=== PATIENT | male | born 1990 | race Caucasian/White ===

== ENCOUNTER 2022-09-06 14:35 | Emergency (ER) | payer MEDICAID, SELFPAY ==
[2022-09-06 14:37] VITALS: BP 131/81; PULSE 83; RESP 18; TEMP 35.9; O2SAT 99; BMI 30.5
--- NOTE | 2022-09-06 15:00 | EKG12_ITS ---
Test Reason : NEAR SYNCOPE Blood Pressure : / mmHG Vent. Rate : 074 BPM Atrial Rate : 074 BPM P-R Int : 142 ms QRS Dur : 094 ms QT Int : 372 ms P-R-T Axes : 044 040 011 degrees QTc Int : 412 ms Normal sinus rhythm with sinus arrhythmia Nonspecific ST and T wave abnormality Abnormal ECG Confirmed by KARLA GRADY, MARKEL ([id number]), editor newspaper MARILU CRISTINA ([id number]) on 09/08/2022 7:25:13 AM Referred By: SAM Confirmed By:MARKEL ACOSTA MD
--- NOTE | 2022-09-06 15:17 | EX.ED.DYSGE1 ---
HPI History of Present Illness Chief Complaint: Syncope Informant: patient Narrative Narrative: Patient is a 32-year-old male that denies any past medical history presenting after near syncopal episode and epistaxis. Patient slept from 6 AM to 12 PM and got up. He thought about going back to sleep. 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 He then was not feeling right and felt nauseous. He went to walk to the kitchen to get a cup of water when he started to feel lightheaded had chest discomfort and pain in his left arm. Patient states he had some ringing in his ears at this time. He knelt to the ground. He felt like he was going to pass out. When he went to stand up he stumbled and did hit his nose and developed nosebleed. He called a friend who then brought him to the emergency room for evaluation. Patient states he is never anything like this before and feels like something was wrong. He denies actually hitting his head or passing out. He currently has no symptoms. He notes has been having discomfort in his left arm just above his elbow for the past few days. He also reports that today is the anniversary of his mother's from lung cancer. Denies any history of blood clots. Denies any swelling of his legs. No other complaints at this time. [facility] Medical History (Updated 09/06/22 @ 17:[address] Maria Alejandra Torres DO) Syncope Home Medications NK 09/06/22 [History Last Taken Unknown] Allergy/AdvReac Type Severity Reaction Status Date / Time No Known Allergies Allergy Verified 09/06/22 14:36 Social History Smoking Status: Never smoker [facility] ED Constitutional Constitutional ED: Denies chills or fever(s) Eyes Eyes: Denies blurry vision or change in vision ENT ENT ED: Reports other Details: Nosebleed, ear ringing ; Denies ear pain or rhinorrhea Cardiovascular Cardiovascular: Reports chest pain; Denies palpitations Respiratory/Chest Respiratory/Chest: Denies cough, dyspnea or dyspnea on exertion Gastrointestinal Gastrointestinal: Reports nausea; Denies abdominal pain or vomiting Genitourinary Genitourinary ED: Denies dysuria Musculoskeletal Musculoskeletal: Reports other Details: Left arm pain ; Denies arthralgias or myalgias Integumentary Denies rash Neurologic Neurologic: Denies headache(s), paresthesias or weakness Psychiatric Psychiatric: Reports anxiety; Denies depression Hematologic/Lymphatic Hematologic/Lymphatic: Denies easy bleeding or easy bruising EXAM Physical Exam Const Vital Signs: 09/06/22 14:37 09/06/22 15:34 09/06/22 16:52 Temperature 96.6 F L Temperature Source Temporal Pulse Rate 83 Pulse Rate [Lying] 84 Pulse Rate [Sitting (for 1 minute prior to obtaining)] 79 Pulse Rate [Standing (for 1 minute prior to obtaining)] 83 Respiratory Rate 18 Respiratory Effort Normal Non-Labored Respiratory Pattern Normal Blood Pressure 131/81 H Blood Pressure [Lying] 103/92 H Blood Pressure [Sitting (for 1 minute prior to obtaining)] 131/80 H Blood Pressure [Standing (for 1 minute prior to obtaining)] 129/76 H Blood Pressure Mean 97 Blood Pressure Mean [Lying] 95 Blood Pressure Mean [Sitting (for 1 minute prior to obtaining)] 97 Blood Pressure Mean [Standing (for 1 minute prior to obtaining)] 93 Pulse Ox 99 Oxygen Delivery Method Room Air 09/06/22 17:01 09/06/22 18:19 Temperature Temperature Source Pulse Rate 79 Pulse Rate [Lying] Pulse Rate [Sitting (for 1 minute prior to obtaining)] Pulse Rate [Standing (for 1 minute prior to obtaining)] Respiratory Rate 23 H Respiratory Effort Respiratory Pattern Blood Pressure 128/75 H Blood Pressure [Lying] Blood Pressure [Sitting (for 1 minute prior to obtaining)] Blood Pressure [Standing (for 1 minute prior to obtaining)] Blood Pressure Mean Blood Pressure Mean [Lying] Blood Pressure Mean [Sitting (for 1 minute prior to obtaining)] Blood Pressure Mean [Standing (for 1 minute prior to obtaining)] Pulse Ox 95 93 Oxygen Delivery Method Room Air Positive well nourished and well developed General Appearance ED: well developed and NAD; Negative for pallor HEENT Reports moist mucous membranes; Denies TM's clear HEENT Narrative: Bilateral cerumen impactions. Dried blood in the right nares. No active bleeding appreciated. Normal oropharynx. Negative for trauma Tympanic Membrane ED: Negative for TM's clear Eyes PERRL and EOMs intact bilaterally General Eye ED: Negative for pale conjunctiva Neck supple Chest Wall inspection of chest normal and palpation of chest normal Resp normal respiratory effort and clear to auscultation bilaterally Cardio regular rate, regular rhythm and no murmurs GI normal to inspection, nondistended, normoactive bowel sounds and non-tender Back/Spine no CVA tenderness Extremity normal to inspection General Extremety ED: Negative for edema or tenderness General Extremity: Negative for edema Neuro oriented x3 and no sensory deficits noted Sensorium / Orientation: alert Motor Exam: strength 5/5 throughout; Negative for general weakness Psych mental status grossly normal Skin no rashes or lesions noted and no wounds General Skin Exam: Negative for jaundice or pallor MDM MDM MDM Narrative Medical decision making narrative: Patient evaluated after an episode of near syncope. Currently patient is asymptomatic. He has been having some left arm discomfort for couple days however cardiac work-up is largely normal. High since he troponin is 14. EKG does not show any acute ischemic changes. He does have nonspecific T wave inversions in 3 and aVF. There is no reciprocal changes I do not have any comparison available. Patient's D-dimer is elevated so CTA is ordered. This does not show any acute process. Chest x-ray to read by myself as well as radiology does not show any acute process. Patient is orthostatic positive. Is given a liter of IV fluid in the ER. Patient is given referral for primary care doctor does not have 1. Counseled that the cause of his near syncope is not clear today however it could be dehydration and stress mediated. At this time I do think it safe for him to go home. Is discharged home in stable condition. Is given return precautions. Lab Data Attestation: I reviewed the patient's lab results. Labs: Laboratory Results - last 24 hr 09/06/22 09/06/22 09/06/22 15:30 15:30 15:30 WBC 9.7 RBC 4.81 Hgb 14.1 Hct 42.5 MCV 88.4 MCH 29.3 MCHC 33.2 RDW Std Deviation 40.6 RDW Coeff of Tyler 12.4 Plt Count 330 MPV 9.4 Immature Gran % (Auto) 0.200 Neut % (Auto) 56.0 Lymph % (Auto) 29.8 [place] % (Auto) 10.8 H Eos % (Auto) 2.8 Baso % (Auto) 0.4 Absolute Neuts (auto) 5.4 Absolute Lymphs (auto) 2.88 Nucleated RBC % 0 D-Dimer Quant (PE/DVT) 2.12 H* Sodium 139 Potassium 3.5 Chloride 104 Carbon Dioxide 30.0 Anion Gap 5 BUN 18 Creatinine 1.13 Estim Creat Clear Calc 103.96 Est GFR (MDRD) Af Amer 97 Est GFR (MDRD) Non-Af 80 BUN/Creatinine Ratio 15.9 Glucose 124 H Calcium 9.3 Troponin I High Sens 14 Radiography Diagnostic Testing: Clinical Impression(s) from Imaging Studies Chest X-Ray 09/06/22 15:42 IMPRESSION: Normal x-ray examination of the chest. Electronically Signed: Jocy Mesa MD at 17:00 EST , Chest CTA 09/06/22 16:03 IMPRESSION: No acute abnormalities in the chest. Specifically, no evidence of acute pulmonary emboli to the segmental level. Electronically Signed: Pb Hernandez MD at 17:25 EST , Rhythm Strip Rhythm Strip: Sinus Rhythm Rate: 74 Ectopy: None EKG Initial EKG: Attestation: I personally reviewed and interpreted this EKG as follows: Interpretation: Sinus Rhythm Comments: Normal sinus rhythm at a rate of 74 beats per minutes Normal axis Normal intervals Normal ST segments T wave inversions in 3 and aVF No prior EKG available for comparison Discharge Plan Triage Chief Complaint: Syncope ED Provider: Maria Alejandra Torres Dx/Rx/DC Orders Clinical Impression: Near syncope, Orthostatic hypotension Instructions: ED Hypotension, Orthostatic, ED Near-Fainting, Uncertain Cause Prescriptions: No Action NK Primary Care Provider: Care Physician,No Primary Referrals: Gilberto Bryan MD [Med Staff - Active Staff] - As soon as possible Care Physician,No Primary [Primary Care Provider] - Disposition Disposition: Home, Self Care Discharge Date/Time: 09/06/22 18:20
[2022-09-06] MEDS: 0.9% Normal Saline 1,000 ML 1000 ML IV (15:32)
--- NOTE | 2022-09-06 15:42 | RAD_ITS ---
STUDY: X-RAY CHEST REASON FOR EXAM: Male, 32 years old. Near syncope TECHNIQUE: PA and lateral views of the chest. COMPARISON: None. FINDINGS: The lungs are clear and expanded. There is no demonstrated pleural abnormality. Normal size heart. Normal mediastinum and callum. Normal visualized pulmonary arteries. Normal visualized aortic arch and descending thoracic aorta. Normal visualized thoracic spine. Normal visualized ribs, clavicles, and shoulders. There is no demonstrated abnormality of the visualized soft tissue structures of the upper abdomen. RAD/Chest PA and Lateral IMPRESSION: Normal x-ray examination of the chest. Electronically Signed: Jocy Mesa MD at 17:00 EST Reading Location ID and State: [facility] / [place] Tel , Service support ,
[2022-09-06 15:46] LABS: Absolute Lymphocyte Count 2.88 X10^3/uL (0.83-4.51); Absolute Neutrophil Count 5.4 X10^3/uL (2.0-7.7); Basophil# 0.04 X10^3/uL; Basophil% 0.4 % (0-1); Eosinophil# 0.27 X10^3/uL; Eosinophils% 2.8 % (0-5); Hematocrit 42.5 % (40-54); Hemoglobin 14.1 g/dL (13.0-16.5); Lymphocyte # 2.88 X10^3/ul (0.83-4.51); Lymphocyte % 29.8 % (19-41); Mean Corp Hgb Conc 33.2 g/dL (32-36); Mean Corpuscular Hgb 29.3 pg (27.0-32.0); Mean Corpuscular Volume 88.4 fL (80-94); Mean Platelet Vol. 9.4 fl (6.2-12.0); Monocyte# 1.04 X10^3/uL; Monocyte% 10.8 % (0-10); NRBC Flagged by Analyzer 0 % (0-5); Neutrophil # 5.42 X10^3/uL (2.7-7.7); Platelet Count 330 K/mm3 (150-450); RBC Distribution Width CV 12.4 % (11.6-14.6); RBC Distribution Width SD 40.6 fl (35.1-43.9); Red Blood Count 4.81 M/mm3 (4.6-6.2); White Blood Count 9.7 K/mm3 (4.4-11.0)
[2022-09-06 16:02] LABS: D-Dimer Quantitative (DVT/PE) 2.12 FEU/ug/m (0.27-0.49)
--- NOTE | 2022-09-06 16:03 | CT_ITS ---
INDICATION: chest pain, elevated dimer EXAMINATION: CTA Chest WO/W Contrast Injection TECHNIQUE: Helically acquired images were obtained of the chest following administration of IV contrast. A radiation dose optimization technique was used for this scan. 3D postprocessing images including MIPS were reviewed. IV Contrast dosage and agent: IV 100mL [id number] COMPARISON: None. FINDINGS: Lungs: Unremarkable Mediastinum: The cardiomediastinal silhouette is not enlarged. No mediastinal, hilar or axillary adenopathy. The thoracic aorta is unremarkable. No obvious filling defect seen within the visualized pulmonary arteries. Pleura: Unremarkable Bones/Soft tissues: No suspicious osseous or soft tissue lesions Upper abdomen: No visualized abnormalities in the upper abdomen. CT/CTA Chest W/WO Contrast IMPRESSION: No acute abnormalities in the chest. Specifically, no evidence of acute pulmonary emboli to the segmental level. Electronically Signed: Pb Hernandez MD at 17:25 [facility] ,
[2022-09-06 16:08] LABS: Anion Gap 5 (5-15); BUN 18 mg/dL (7-18); BUN/Creat Ratio 15.9 RATIO (10-20); Calcium,Total 9.3 mg/dL (8.5-10.1); Chloride 104 mmol/L (98-107); Creatinine, Serum 1.13 mg/dL (0.70-1.30); EST Glomerular Filtration Rate 80 mL/min (>60); Est Glom Filt Rate - Afr Amer 97 mL/min (>60); Estimated Creatinine Clearance 103.96 ml/min; Glucose 124 mg/dL (74-106); Potassium 3.5 mmol/L (3.5-5.1); Sodium Level 139 mmol/L (136-145); Troponin-I HS 14 pg/mL (3.0-78.0)
[2022-09-06 16:52] VITALS: BP 103/92; BP 129/76; BP 131/80; PULSE 79; PULSE 83; PULSE 84
[2022-09-06 17:01] VITALS: O2SAT 95
[2022-09-06 18:19] VITALS: BP 128/75; PULSE 79; RESP 23; O2SAT 93
== END 2022-09-06 18:20 | disposition home or self-care (01) ==
PROVIDERS: Emergency Provider Emergency Medicine; Visit Provider Emergency Medicine
DX: R55 Syncope and collapse (principal); I95.1 Orthostatic hypotension
CPT/HCPCS: 71046; 71275; 80048; 84484; 85025; 85379; 93005; 96360; 99285; J7030; Q9967; A4216

== ENCOUNTER 2022-09-10 22:01 | Emergency (ER) | payer MEDICAID, SELFPAY ==
[2022-09-10 22:01] VITALS: BP 133/99; PULSE 78; RESP 16; TEMP 36.6; O2SAT 100; BMI 31.4
[2022-09-10 22:07] VITALS: BP 122/86; PULSE 82; RESP 16; O2SAT 98
--- NOTE | 2022-09-10 22:07 | EKG12_ITS ---
Test Reason : CP Blood Pressure : / mmHG Vent. Rate : 085 BPM Atrial Rate : 085 BPM P-R Int : 144 ms QRS Dur : 090 ms QT Int : 356 ms P-R-T Axes : 029 045 021 degrees QTc Int : 423 ms Normal sinus rhythm Normal ECG Confirmed by KARLA GRADY, MARKEL ([id number]), supervising editor news reel MARILU CRISTINA ([id number]) on 09/12/2022 10:48:12 AM Referred By: CAROLINA Confirmed By:MARKEL ACOSTA MD
[2022-09-10 22:40] VITALS: BP 142/96; PULSE 78; RESP 13; O2SAT 92
[2022-09-10] MEDS: hydrOXYzine PAM 25 MG Capsule PO (22:41)
--- NOTE | 2022-09-10 22:58 | ED.VIS.CHEST ---
HPI History of Present Illness Chief Complaint: Chest Pain Narrative Narrative: 32-year-old male presenting with some left arm discomfort. He states he has had some intermittent chest discomfort over the last several days. He states that when he lays down he feels anxious and nauseous. If he gets up and paces his symptoms improved. He does relate to be that the 15th was anniversary of his mother's . He has not had a fever, chills, cough. He is not short of breath. Although he is nauseous he is not vomiting. He is able to eat and drink. No history of acid reflux. He states he was seen in the ER 3 days ago and had a normal work-up. He states that he called off work tonight because he was feeling a little bit anxious and nauseous. Patient was told a couple of days ago that he had orthostatic hypotension. He states he was feeling lightheaded at that time but no longer feels this way. [facility] Medical History Syncope Home Medications hydroxyzine pamoate 25 mg capsule (Vistaril) 25 mg PO TID PRN anxiety #30 caps 09/10/22 [Rx Last Taken Unknown] Allergy/AdvReac Type Severity Reaction Status Date / Time No Known Allergies Allergy Verified 09/10/22 22:08 Social History Smoking Status: Never smoker ROS ROS ED Constitutional Constitutional ED: Denies chills, fever(s) or sweats Eyes Eyes: Denies blurry vision or change in vision ENT ENT ED: Denies ear pain or sore throat Cardiovascular Cardiovascular: Reports chest pain; Denies palpitations or racing heartbeat Respiratory/Chest Respiratory/Chest: Reports dyspnea; Denies cough or sputum Gastrointestinal Gastrointestinal: Reports nausea; Denies abdominal pain, constipation, diarrhea or vomiting Genitourinary Genitourinary ED: Denies dysuria, hematuria or urinary frequency Musculoskeletal Musculoskeletal: Denies arthralgias, myalgias or neck pain Integumentary Denies abscess, Abrasions or rash Neurologic Neurologic: Denies headache(s), paresthesias or weakness Psychiatric Psychiatric: Denies anxiety, depression, suicidal ideation or suicidal thoughts Endocrine Endocrinology: Denies polydipsia or polyuria EXAM Physical Exam Const Vital Signs: 09/10/22 22:01 09/10/22 22:07 09/10/22 22:09 Temperature 98 F Temperature Source Temporal Pulse Rate 78 82 Respiratory Rate 16 16 Respiratory Effort Normal Non-Labored Blood Pressure 133/99 H 122/86 H Blood Pressure Mean 110 98 Pulse Ox 100 98 Oxygen Delivery Method Room Air Room Air 09/10/22 22:40 Temperature Temperature Source Pulse Rate 78 Respiratory Rate 13 Respiratory Effort Blood Pressure 142/96 H Blood Pressure Mean Pulse Ox 92 Oxygen Delivery Method Positive well nourished General Appearance ED: NAD; Negative for pallor HEENT Reports moist mucous membranes normocephalic and atraumatic Eyes PERRL and EOMs intact bilaterally Resp normal respiratory effort and clear to auscultation bilaterally Auscultation: Negative for rales, rhonchi or wheezes Cardio regular rate, regular rhythm and no murmurs GI normal to inspection, nondistended, normoactive bowel sounds Extremity normal to inspection Neuro oriented x3, CN's II-XII intact bilaterally and no sensory deficits noted Sensorium / Orientation: awake and alert Motor Exam: strength 5/5 throughout Psych mental status grossly normal Mood & Affect: anxious Skin no rashes or lesions noted General Skin Exam: Negative for jaundice or pallor Heart Score History: Slightly/Non-Suspicious Score: 0 MDM MDM MDM Narrative Medical decision making narrative: Patient presenting for reevaluation. He was told to return if he started having more symptoms. He had a normal cardiac work-up and a CTA 4 days ago. He states he was feeling lightheaded at that time but has not had any lightheadedness since. EKG was performed today which on my interpretation shows normal sinus rhythm with a ventricular rate of 85 bpm without sign of ischemic change or dysrhythmia. After speaking at length with him he does appear to have some anxiety and states that the 15th was the anniversary of his mother's . With a normal cardiac work-up and no cardiac history or risk factors and no believe he needs another work-up. Patient again will follow up with his PCP. He was given follow-up with the counseling center as well. He was given Vistaril as a prescription. Impression: 1. Anxiety Lab Data Attestation: I reviewed the patient's lab results. Discharge Plan Triage Chief Complaint: Chest Pain ED Provider: Ralph,Johan Dx/Rx/DC Orders Instructions: ED Anxiety Reaction Prescriptions: New hydroxyzine pamoate [Vistaril] 25 mg capsule 25 mg PO TID PRN (Reason: anxiety) Qty: 30 0RF Primary Care Provider: Care Physician,No Primary Referrals: Counseling,Center [Group of Physicians] - As soon as possible Care Physician,No Primary [Primary Care Provider] - Disposition Disposition: Home, Self Care
[2022-09-10 23:12] VITALS: RESP 16; O2SAT 98
== END 2022-09-10 23:13 | disposition home or self-care (01) ==
PROVIDERS: Emergency Provider Student in an Organized Health Care Education/Training Program; Visit Provider Student in an Organized Health Care Education/Training Program
DX: F41.9 Anxiety disorder, unspecified (principal); R11.0 Nausea; R07.9 Chest pain, unspecified
CPT/HCPCS: 93005; 99284

== ENCOUNTER 2022-12-16 19:25 | Emergency (ER) | payer MEDICAID, SELFPAY ==
[2022-12-16 19:26] VITALS: BP 141/98; PULSE 83; RESP 15; TEMP 36.9; O2SAT 98; BMI 32.9
--- NOTE | 2022-12-16 19:45 | EKG12_ITS ---
Test Reason : ARM PAIN Blood Pressure : / mmHG Vent. Rate : 066 BPM Atrial Rate : 066 BPM P-R Int : 148 ms QRS Dur : 102 ms QT Int : 376 ms P-R-T Axes : 015 027 013 degrees QTc Int : 394 ms Normal sinus rhythm Normal ECG Confirmed by DAYANARA GRADY, HECTOR ([id number]), purchase request editor MARILU CRISTINA ([id number]) on 12/18/2022 8:40:24 AM Referred By: Confirmed By:HECTOR NICHOLE MD
--- NOTE | 2022-12-16 19:46 | ED.VIS.CHEST ---
HPI History of Present Illness Chief Complaint: Chest Other Narrative Narrative: 32-year-old male presenting with left arm discomfort. He has intermittent chest discomfort as well. He states this was going on for months. He has been to the ER twice for this. He relates that it started about the time of the anniversary of his mother's . He has not had a fever or chills. He is not short of breath. He does feel as if his heart rate is going to slow sometimes. He states he felt this in bed left the other day and decided not to get up. He was told that he would fall. He noticed today when he woke up from a nap that he was having a discomfort in his arm and he felt like his blood pressure was high. Patient has no cardiac history. No lung problems. He states that he called off work because he is feeling anxious. Patient has given follow-up twice from the emergency room but has not made a follow-up appointment. He states that today that he wants to go ahead and make an appointment for this but wanted to get evaluated again. [facility] Medical History Syncope Home Medications hydroxyzine pamoate 25 mg capsule (Vistaril) 25 mg PO TID PRN anxiety #30 caps 09/10/22 [Rx Last Taken Unknown] hydroxyzine pamoate 25 mg capsule (Vistaril) 25 mg PO Q8H PRN anxiety #30 caps 12/16/22 [Rx Last Taken Unknown] Allergy/AdvReac Type Severity Reaction Status Date / Time No Known Allergies Allergy Verified 12/16/22 19:31 Social History Smoking Status: Never smoker [facility] ED Constitutional Constitutional ED: Denies chills, fever(s) or sweats Eyes Eyes: Denies blurry vision or change in vision ENT ENT ED: Denies ear pain or sore throat Cardiovascular Cardiovascular: Reports chest pain; Denies palpitations or racing heartbeat Respiratory/Chest Respiratory/Chest: Denies cough, dyspnea or sputum Gastrointestinal Gastrointestinal: Denies abdominal pain, constipation, diarrhea, nausea or vomiting Genitourinary Genitourinary ED: Denies dysuria, hematuria or urinary frequency Musculoskeletal Musculoskeletal: Denies arthralgias, myalgias or neck pain Integumentary Denies abscess, Abrasions or rash Neurologic Neurologic: Denies headache(s), paresthesias or weakness Psychiatric Psychiatric: Reports anxiety; Denies depression, suicidal ideation or suicidal thoughts Endocrine Endocrinology: Denies polydipsia or polyuria EXAM Physical Exam Const Vital Signs: 12/16/22 19:26 12/16/22 19:50 12/16/22 19:52 Temperature 98.4 F Temperature Source Temporal Pulse Rate 83 Respiratory Rate 15 Respiratory Effort Normal Non-Labored Blood Pressure 141/98 H Blood Pressure Mean 112 Pulse Ox 98 Oxygen Delivery Method Room Air Room Air 12/16/22 20:29 12/16/22 21:24 Temperature Temperature Source Pulse Rate 74 73 Respiratory Rate 14 15 Respiratory Effort Blood Pressure Blood Pressure Mean Pulse Ox Oxygen Delivery Method Positive well nourished General Appearance ED: NAD HEENT Reports moist mucous membranes Eyes PERRL and EOMs intact bilaterally Neck no lymphadenopathy Chest Wall inspection of chest normal and palpation of chest normal Resp normal respiratory effort and clear to auscultation bilaterally Auscultation: Negative for rales, rhonchi or wheezes Cardio regular rate and regular rhythm Neuro oriented x3 and CN's II-XII intact bilaterally Sensorium / Orientation: awake Motor Exam: strength 5/5 throughout Psych mental status grossly normal Skin no rashes or lesions noted Heart Score History: Slightly/Non-Suspicious ECG: Normal Age: </= 45 years Risk Factors: No Risk Factors Troponin: </= Normal Limit Score: 0 MDM MDM MDM Narrative Medical decision making narrative: Patient with history of undiagnosed anxiety presenting with some atypical chest pain that she had. Has already been evaluated for this in the past a couple of times. Patient states the hydroxyzine I gave him last time did help him. Although the patient is having anxiety I have a low suspicion for ACS but I did do a cardiac work-up. I suspect this is likely due to anxiety. He is PERC negative so I do not think he has a PE. CBC to assess white blood cell count, hemoglobin, platelets, differential. BMP to assess renal function and electrolytes. High-sensitivity troponin 20 assess for ischemia. Chest x-ray was obtained as well. EKG shows normal sinus rhythm at 66 bpm without sign of ischemic change or dysrhythmia. Chest x-ray mitral goldstein shows no acute process. Radiology interpreted this and agree. CBC and BMP unremarkable. High-sensitivity troponin is 17. Not believe needs a delta troponin. I spoke to him at length about follow-up. He states that he when he is going to call tomorrow to make an appointment with his primary care. Return precautions were discussed. He was given another prescription for Vistaril. Impression: 1. Chest pain noncardiac 2. Anxiety Lab Data Attestation: I reviewed the patient's lab results. Labs: Laboratory Results - last 24 hr 12/16/22 12/16/22 19:50 19:50 WBC 6.4 RBC 5.27 Hgb 15.7 Hct 46.6 MCV 88.4 MCH 29.8 MCHC 33.7 RDW Std Deviation 38.5 RDW Coeff of Tyler 11.9 Plt Count 317 MPV 9.0 Immature Gran % (Auto) 0.200 Neut % (Auto) 58.5 Lymph % (Auto) 32.0 [place] % (Auto) 7.2 Eos % (Auto) 1.3 Baso % (Auto) 0.8 Absolute Neuts (auto) 3.7 Absolute Lymphs (auto) 2.04 Nucleated RBC % 0 Sodium 137 Potassium 4.2 Chloride 102 Carbon Dioxide 30.0 Anion Gap 5 BUN 14 Creatinine 1.02 Estim Creat Clear Calc 111.76 Est GFR (MDRD) Af Amer 109 Est GFR (MDRD) Non-Af 90 BUN/Creatinine Ratio 13.7 Glucose 102 Calcium 9.6 Troponin I High Sens 17 Radiography Diagnostic Testing: Clinical Impression(s) from Imaging Studies Chest X-Ray 12/16/22 20:07 IMPRESSION: No radiographic evidence of acute cardiopulmonary disease. Electronically Signed: Jossy Rutledge MD at 20:28 EDT Reading Location ID and State: [id number] / Tel , Service support , Discharge Plan Triage Chief Complaint: Chest Other ED Provider: Johan Rosas Dx/Rx/DC Orders Instructions: ED Anxiety Reaction Prescriptions: New hydroxyzine pamoate [Vistaril] 25 mg capsule 25 mg PO Q8H PRN (Reason: anxiety) Qty: 30 0RF No Action hydroxyzine pamoate [Vistaril] 25 mg capsule 25 mg PO TID PRN (Reason: anxiety) Qty: 30 0RF Primary Care Provider: Care Physician,No Primary Referrals: Care Physician,No Primary [Primary Care Provider] - Disposition Disposition: Home, Self Care Discharge Date/Time: 12/16/22 22:08
[2022-12-16 19:57] LABS: Absolute Lymphocyte Count 2.04 X10^3/uL (0.83-4.51); Absolute Neutrophil Count 3.7 X10^3/uL (2.0-7.7); Basophil# 0.05 X10^3/uL; Basophil% 0.8 % (0-1); Eosinophil# 0.08 X10^3/uL; Eosinophils% 1.3 % (0-5); Hematocrit 46.6 % (40-54); Hemoglobin 15.7 g/dL (13.0-16.5); Lymphocyte # 2.04 X10^3/ul (0.83-4.51); Mean Corp Hgb Conc 33.7 g/dL (32-36); Mean Corpuscular Hgb 29.8 pg (27.0-32.0); Mean Corpuscular Volume 88.4 fL (80-94); Monocyte# 0.46 X10^3/uL; Monocyte% 7.2 % (0-10); NRBC Flagged by Analyzer 0 % (0-5); Neutrophil # 3.73 X10^3/uL (2.7-7.7); Neutrophil % 58.5 % (47-70); Platelet Count 317 K/mm3 (150-450); RBC Distribution Width CV 11.9 % (11.6-14.6); RBC Distribution Width SD 38.5 fl (35.1-43.9); Red Blood Count 5.27 M/mm3 (4.6-6.2); White Blood Count 6.4 K/mm3 (4.4-11.0)
--- NOTE | 2022-12-16 20:07 | RAD_ITS ---
INDICATION: chest pain EXAMINATION/TECHNIQUE: X-RAY - XR Chest 1 View COMPARISON: 09/06/2022. FINDINGS: LINES/DEVICES: None. LUNGS: No consolidation, edema or effusion. No pneumothorax. MEDIASTINUM AND CARDIOVASCULAR STRUCTURES: Cardiac silhouette not enlarged. Central airways and mediastinal contour are unremarkable. BONES AND SOFT TISSUES: Unremarkable. RAD/Chest 1 View (Portable) IMPRESSION: No radiographic evidence of acute cardiopulmonary disease. Electronically Signed: Jossy Rutledge MD at 20:28 EDT Reading Location ID and State: [id number] / Tel , Service support ,
[2022-12-16 20:16] LABS: Anion Gap 5 (5-15); BUN 14 mg/dL (7-18); BUN/Creat Ratio 13.7 RATIO (10-20); Calcium,Total 9.6 mg/dL (8.5-10.1); Chloride 102 mmol/L (98-107); Creatinine, Serum 1.02 mg/dL (0.70-1.30); EST Glomerular Filtration Rate 90 mL/min (>60); Est Glom Filt Rate - Afr Amer 109 mL/min (>60); Estimated Creatinine Clearance 111.76 ml/min; Glucose 102 mg/dL (74-106); Potassium 4.2 mmol/L (3.5-5.1); Sodium Level 137 mmol/L (136-145); Troponin-I HS 17 pg/mL (3.0-78.0)
[2022-12-16 20:29] VITALS: PULSE 74; RESP 14
[2022-12-16 21:24] VITALS: PULSE 73; RESP 15
== END 2022-12-16 22:08 | disposition home or self-care (01) ==
PROVIDERS: Emergency Provider Student in an Organized Health Care Education/Training Program; Visit Provider Student in an Organized Health Care Education/Training Program
DX: R07.89 Other chest pain (principal); F41.9 Anxiety disorder, unspecified
CPT/HCPCS: 71045; 80048; 84484; 85025; 93005; 99285; A4216